=== PATIENT | female | born 1975 | race Caucasian/White ===

== ENCOUNTER 2022-08-26 15:48 | Outpatient (CLI) | payer OTHER, SELFPAY ==
--- OUTSIDE RECORDS SUMMARY | 2022-08-26 15:51 | XMS_ITS | Encounter Summary ---
:1975 Author Organization [facility] Address [address] [place] [address] Care Team Providers Name Role Phone Unavailable Primary Care Provider Unavailable Encounter Details Date Type Department Care Team Description 06/17/2021 Clinical Communication Department of Peg, Otorhinolaryngology in Savage Alcala M.D. [place], [place] [address] [facility] [address] [place] [phone] Social History Tobacco Use Types Packs/Day Years Used Date Smoking Tobacco: Never Assessed Alcohol Habits Answer Date Recorded How often do you have a drink containing alcohol? 2-4 times a month 08/08/2022 How many drinks containing alcohol do you have on a 5 or 6 08/08/2022 typical day when you are drinking? How often do you have six or more drinks on one Monthly 08/08/2022 occasion? Social Isolation Answer Date Recorded In a typical week, how many times do you Three times a week 08/08/2022 talk on the phone with family, friends, or neighbors? How often do you get together with friends Once a week 08/08/2022 or relatives? How often do you attend scientologist or shinto More than 4 time s per year 08/08/2022 services? Do you belong to any clubs or organizations Yes 08/08/2022 such as scientologist groups, unions, fraternal or athletic groups, or school groups? How often do you attend meetings of the More than 4 times pe r year 08/08/2022 clubs or organizations you belong to? Are you now , , , 08/08/2022 , never or living with a partner? Physical Activity Answer Date Recorded On average, how many days per week do you engage in moderate to 3 days 08/08/2022 strenuous exercise (like walking fast, running, jogging, dancing, swimming, biking, or other activities that cause a light or heavy sweat)? On average, how many minutes do you engage in exercise at th is 20 min 08/08/2022 level? Stress Answer Date Recorded Do you feel stress - tense, restless, nervous, or anxious, o r Very much 08/08/2022 unable to sleep at night because your mind is troubled all the time - these days? Financial Resource Strain Answer Date Recorded How hard is it for you to pay for the very basics like Not v vandana hard 08/08/2022 food, housing, medical care, and heating? Intimate Partner Violence Answer Date Recorded Within the last year, have you been afraid of your partner o r No 08/08/2022 ex-partner? Within the last year, have you been humiliated or emotionall y No 08/08/2022 abused in other ways by your partner or ex-partner? Within the last year, have you been kicked, hit, slapped, or No 08/08/2022 otherwise physically hurt by your partner or ex-partner? Within the last year, have you been raped or forced to have any No 08/08/2022 kind of sexual activity by your partner or ex-partner? Food Insecurity Answer Date Recorded Within the past 12 months, you worried that your food would Never true 08/08/2022 run out before you got money to buy more. Within the past 12 months, the food you bought just didn't N ever true 08/08/2022 last and you didn't have money to get more. Transportation Needs Answer Date Recorded In the past 12 months, has lack of transportation kept you f rom No 08/08/2022 medical appointments or from getting medications? In the past 12 months, has lack of transportation kept you f rom No 08/08/2022 meetings, work, or getting things needed for daily living? Housing Stability Answer Date Recorded In the last 12 months, was there a time when you were not ab le No 08/08/2022 to pay the mortgage or rent on time? In the last 12 months, how many places have you lived? 1 08/08/2022 In the last 12 months, was there a time when you did not hav e a No 08/08/[address] to sleep or slept in a penitentiary (including now)? 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
--- OUTSIDE RECORDS SUMMARY | 2022-08-26 15:51 | XMS_ITS | Encounter Summary ---
:1975 Author Organization [facility] Address [address] [place] [address] Care Team Providers Name Role Phone Unavailable Primary Care Provider Unavailable Reason for Visit Outpatient (Routine) - Closed Specialty Diagnoses / Procedures Referred By Contact Refer red To Contact Otorhinolaryngology Diagnoses Perforation Tympanic Membrane Bilateral Other Marginal Perforations Of Tympanic Membrane Right Ear Carmine Galeas Dutton Yamila Alcala M.D. [address] [place] [address] Referral ID Status Reason Start Date Expiration Date Visits Requ ested Visits Authorized [id number] Closed 04/03/2021 04/03/2022 1 1 Encounter Details Date Type Department Care Team Description 06/05/2021 Comprehensive Visit Department of Lele Ruvalcabaa tion Tympanic Membrane Right (Primary Dx); Otorhinolaryngology in Donny Bullard ctive Hearing Loss Unilateral Right Ear With Unrestricted Hearing On The Contralateral Side [place], [place] Sana [address] [facility] [address] [place] [address] [place] [phone] Social History Tobacco Use Types Packs/Day Years [...] or relatives? How often do you attend sabianism or protestant More than 4 time s per year 08/08/2022 services? Do you belong to any clubs or organizations Yes 08/08/2022 such as sabianism groups, unions, fraternal or athletic groups, or [...] place to sleep or slept in a senior living (including now)? 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 - 06/05/2021 10:45 AM CDT Images from the original note were not included. SUBJECTIVE Referral Source: Carmine Galeas MD for evaluation of right TM perforation CHIEF COMPLAINT / REASON FOR VISIT Mattie Woo is a 45 y.o. female who presents for evaluation of right TM perforation HISTORY OF PRESENT ILLNESS Ms. Woo is a very pleasant 45 y.o. who presents today for evaluation of right TM perforation. Sheindicates that as a child she did have difficulties with return current otologic infections but no surgery. She reports back in 2010 following scuba diving she had bilateral TM rupture and was told this would resolve. She does not recall a time between 2010 in 2020 at which she was told she still had a perforation. She reports that while at a water park in November 2020, she experienced some popping/discomfort in her right ear and that the ear was full/hearing diminished. She did not have any significant otorrhea. She subsequently was evaluated by Dr Galeas who noted she had a right TM perforation. He did obtain a CT scan. She was advised she should have surgery but recommended to come to [facility] for surgery. In regards to the right otalgia, this is intermittent and radiates from below the ear to down into her neck. She does have DANYELL and uses a CPAP since in March 2021. She is otherwise he althy. She does continued to feel aural fullness. With water exposures she has more recently been trying to plug her right ear. She notes there was 1 instance recently where she jumped into a [place] in following this had discomfort in Dr. Galeas prescribed drops. No other otologic concerns. Social History Tobacco Use Smoking status: Not on file ALLERGIES: Not on File CURRENT MEDICATIONS: No current outpatient medications on file. PAST MEDICAL HISTORY: No past medical history on file. SURGICAL HISTORY: No past surgical history on file. SOCIAL HISTORY: Social History Socioeconomic History ??? Marital status: Spouse name: Not on file ??? Number of children: Not on file ??? Years of education: Not on file ??? Highest education level: Not on file Occupational History ??? Not on file Tobacco Use ??? Smoking status: Not on file Substance and Sexual Activity ??? Alcohol use: Not on file ??? Drug use: Not on file ??? Sexual activity: Not on file Other Topics Concern ??? Not on file Social History Narrative ??? Not on file Social Determinants of Health Financial Resource Strain: ??? Difficulty of Paying Living Expenses: Food Insecurity: ??? Worried About Running Out of Food in the Last Year: ??? Ran Out of Food in the Last Year: Transportation Needs: ??? Lack of Transportation (Medical): ??? Lack of Transportation (Non-Medical): Physical Activity: ??? Days of Exercise per Week: ??? Minutes of Exercise per Session: Stress: ??? Feeling of Stress : Social Connections: ??? Frequency of Communication with Friends and Family: ??? Frequency of Social Gatherings with Friends and Family: ??? Attends [employer] Services: ??? Active Member of Clubs or Organizations: ??? Attends Club or Organization Meetings: ??? Marital Status: Intimate Partner Violence: ??? Fear of Current or Ex-Partner: ??? Emotionally Abused: ??? Physically Abused: ??? Sexually Abused: FAMILY HISTORY: No family history on file. REVIEW OF SYSTEMS 10 point review of systems reviewed with patient and noncontributory other than in HPI. OBJECTIVE PHYSICAL EXAM General: Well appearing in no acute distress. Head: Normocephalic, atraumatic. Eyes: Extraocular eye movements intact bilaterally. Ears: Bilateral external ears without masses or lesions. Bilateral ears examined under otomicroscopy. Right Ear: Externally normal in appearance. External auditory canal with debris removed using microalligators and suction. Tympanic membrane with posterior marginal perforation approximately 20% of TM. Left Ear: Externally normal in appearance. External auditory canal with cerumen removed using suction and micro alligators. Tympanic membrane intact. Respiratory: Unlabored respirations. Psych: Appropriate mood and affect. DIAGNOSTICS: Audiogram: ASSESSMENT / PLAN #1 Perforation Tympanic Membrane Right #2 Conductive Hearing Loss Unilateral Right Ear With Unrestricted Hearing On The Contralateral Side It was a pleasure to meet Ms. Woo today. Pictures were taken of her ears today. We reviewed she does have a right tympanic membrane perforation in a posterior marginal area approximating 20% of the drum. We discussed options of observation versus surgery. Given her young age, good health, and the appearance we did recommend proceeding with surgical intervention to provide a safer ear. We discussedthere is some potential that her hearing may improve and the sensation of fullness may improve. It is difficult to predict how the discomfort she experiences may respond as this can be secondary otalgia. We reviewed surgical technique with the initial transcanal with possibility of postauricular incision. We discussed postoperative care and restrictions. We reviewed risks of surgery which include butare not limited to facial nerve damage, dysgeusia, and hearing loss. We discussed the following surgery she may have some muffled hearing and drainage. At this time, she is interested in proceeding with surgery but would like to review her calendar as she has some upcoming trips. She will contact us to schedule. All questions answered to the best of our ability. Patient reports understanding and agreement with this treatment plan. This patient was also seen and evaluated by Savage Ruvalcaba MD. TT: 30 min documented in this encounter Plan of Treatment Not on filedocumented as of this encounter Visit Diagnoses Diagnosis Perforation Tympanic Membrane Right - Pr imary Conductive Hearing Loss Unilateral Right Ear With Unrestricted Hearing On The Contralateral Side documented in this encounter
--- OUTSIDE RECORDS SUMMARY | 2022-08-26 15:51 | XMS_ITS | Encounter Summary ---
:1975 Author Organization [facility] Address [address] [place] [address] Care Team Providers Name Role Phone Elsewhere, Pcp Primary Care Provider Unavailable Encounter Details Date Type Department Care Team Description 01/23/2022 Diagnostic Department of Savage Ruvalcaba M.D. [address] [place] [address] Loss Hearing Conductive (Primary Dx); Otorhinolaryngology in Jacy Perez Au.D., M.S. [address] [place] [phone] Perforation Tympanic Membrane Right [place], [place] [address] [place], [place] [phone] Social History Tobacco Use Types Packs/Day Years Used Date Smoking Tobacco: Never Smokeless Tobacco: Never Alcohol Use Standard Drinks/Week Comments Never 0 (1 standard drink = 0.6 oz pure alcoho l) Alcohol Habits Answer Date Recorded How often [...] or relatives? How often do you attend quaker or cheondoism More than 4 time s per year 08/08/2022 services? Do you belong to any clubs or organizations Yes 08/08/2022 such as quaker groups, unions, fraternal or athletic groups, or [...] to sleep or slept in a senior care (including now)? Education Answer Date Recorded What is the highest level of school you have Some college, n o degree 11/11/2021 completed or the highest degree you have received? 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 - 01/23/2022 3:52 PM CDT SUBJECTIVE CHIEF COMPLAINT / REASON FOR VISIT Check hearing status HISTORY OF PRESENT COMPLAINT Ms. Mattie Woo is a 46 year old patient that underwent right tympanoplasty and cholesteatoma removal 10/23/2021. She noticed improvement afterwards; however, became ill in November and experienced significant drainage from both ear canals, right greater than left. She denies: significant noise exposure, significant ototoxic medications exposure, familial hearing loss, ear infections, ear or head trauma, ear or head trauma, prior ear surgery, OBJECTIVE See Audiological Evaluation Form ASSESSMENT/PLAN ?? Right ear- mild conductive hearing loss with 100% open-set word recognition; deferred tympanometry due to recent surgery ?? Left ear-mild to moderate conductive hearing loss with 100% open-set word recognition; tympanometry demonstrated a carole-compliant middle ear system CARE PLAN Discussed. To ENT next. documented in this encounter Plan of Treatment Not on filedocumented as of this encounter Procedures Procedure Name Priority Date/Time Associated Diagnosis Comme nts AUDIOGRAM Routine 01/23/2022 12:00 AM CDT Perforation Tympa nilo Membrane Right documented in this encounter Results Audiogram (01/23/2022 12:00 AM CDT) Specimen (Source) Anatomical Location Collection Method / Collectio n Time Received Time / Laterality Volume 01/23/2022 Narrative This result has an attachment that is no t available. Savage Ruvalcaba M.D. AUDIOLOGY SERVICES ORDERABLE S Performing Organization Address City/State/ZIP Code Phon e Number [facility]OLOGY [facility] documented in this encounter Visit Diagnoses Diagnosis Loss Hearing Conductive - Primary Perforation Tympanic Membrane Right documented in this encounter Care Teams Wool Hat Finisher Relationship Specialty Start Date End Date Elsewhere, Pcp PCP - General Internal Medicine 10/23/21 documented as of this encounter
--- OUTSIDE RECORDS SUMMARY | 2022-08-26 15:51 | XMS_ITS | Encounter Summary ---
:1975 Author Organization [facility] Address [address] [place] [address] Care Team Providers Name Role Phone Elsewhere, Pcp Primary Care Provider Unavailable Encounter Details Date Type Department Care Team Description 08/12/2022 Ancillary Procedure Department of Otorhinolaryngology Social History Tobacco Use Types Packs/Day Years [...] or relatives? How often do you attend baptist or quaker More than 4 time s per year 08/08/2022 services? Do you belong to any clubs or organizations Yes 08/08/2022 such as baptist groups, unions, fraternal or athletic groups, or [...] place to sleep or slept in a intermediate (including now)? Education Answer Date Recorded What is the highest level of school you have Some college, n o degree 11/11/2021 completed or the highest degree you have received? 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 documented in this encounter Results EAR-Otorhinolaryngology Image Exam (08/12/2022 3:39 PM CDT) Specimen (Source) Anatomical Collection Method Collection Time Re ceived Time Location / / Volume Laterality 08/12/2022 3:51 PM CDT Narrative [facility] - 08/12/2022 3:39 PM CDT This order has been created and auto-finalized to support the import of images acquired without order. The clini liliane documentation to support these images can be found on the encounter chele t produced images. Provider Not In System IMG NON RAD IMAGING PROCEDUR ES Performing Organization Address City/State/ZIP Code Phon e Number [facility] NA documented in this encounter Visit Diagnoses Not on filedocumented in this encounter Care Teams Technical Marketing Engineer Relationship Specialty Start Date End Date Elsewhere, Pcp PCP - General Internal Medicine 10/23/21 documented as of this encounter
--- OUTSIDE RECORDS SUMMARY | 2022-08-26 15:51 | XMS_ITS | Encounter Summary ---
:1975 Author Organization [facility] Address [address] [place] [address] Care Team Providers Name Role Phone Elsewhere, Pcp Primary Care Provider Unavailable Reason for Referral Outpatient (Routine) - Closed Specialty Diagnoses / Procedures Referred By Contact Refer red To Contact Otorhinolaryngology Savage Ruvalcaba, Altagracia Driscoll M.D. 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 Cholesteatoma Right [place], [place] [address] [place] [address] [place] [phone] Social History Tobacco Use Types Packs/Day Years [...] or relatives? How often do you attend shinto or advent More than 4 time s per year 08/08/2022 services? Do you belong to any clubs or organizations Yes 08/08/2022 such as shinto groups, unions, fraternal or athletic groups, or [...] place to sleep or slept in a fdc (including now)? Education Answer Date Recorded What is the highest level of school you have Some college, n o degree 11/11/2021 completed or the highest degree you have received? 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 - 11/14/2021 8:15 AM CST SUBJECTIVE CHIEF COMPLAINT / REASON FOR VISIT Mattie Woo is a 46 y.o. female who presents for evaluation following surgery. HISTORY OF PRESENT ILLNESS Ms. Woo is approximately 3 weeks status post right tympanoplasty. She had had a prior surgery and developed epithelium along the medial aspect of her tympanic membrane. Postoperatively she has donewell. She had some drainage early on but minimally later. No significant pain. The following portions of the patient's history were reviewed and updated as appropriate: allergies,current medications, family history, medical history, social history, surgical history and problem list. OBJECTIVE PHYSICAL EXAM Physical Exam Ear canal was cleaned of a large amount of Gelfoam. The tympanic membrane is intact in good position. There was minimal granulation tissue and no purulence. Her incisions are healing well. ASSESSMENT / PLAN #1 Perforation Tympanic Membrane Right Satisfactory progress following right tympanoplasty and cholesteatoma removal. I have her continue using ear drops for 2 more days as well as water precautions. She can then resume normal activities including use of her CPAP. We will see her back in approximately 2-3 months with an audiogram. She willbe in touch in the interim if she has any concerns. 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 Savage Ruvalcaba M.D. AUDIOLOGY SERVICES ORDERABLE S Performing Organization Address City/State/ZIP Code Phon e Number AUDIOLOGY [facility] documented in this encounter Visit Diagnoses Diagnosis Perforation Tympanic Membrane Right - Pr imary Cholesteatoma Right documented in this encounter Care Teams Field Traffic Investigator Relationship Specialty Start Date End Date Elsewhere, Pcp PCP - General Internal Medicine 10/23/21 documented as of this encounter
--- OUTSIDE RECORDS SUMMARY | 2022-08-26 15:51 | XMS_ITS | Encounter Summary ---
:1975 Author Organization [facility] Address [address] [place] [address] Care Team Providers Name Role Phone Unavailable Primary Care Provider Unavailable Reason for Referral Outpatient (Routine) - Closed Specialty Diagnoses / Procedures Referred By Contact Refer red To Contact Otorhinolaryngology Diagnoses Perforation Tympanic Membrane Bilateral Other Marginal Perforations Of Tympanic Membrane Right Ear Carmine Galeas M.D. [address] [place] [address] Referral ID Status Reason Start Date Expiration Date Visits Requ ested Visits Authorized [id number] Closed 04/03/2021 04/03/2022 1 1 Encounter Details Date Type Department Care Team Description 04/03/2021 [facility] Gerald Galeas oration Tympanic Membrane Bilateral (Primary Dx); AND CLINICS Carmine Alcala M.D. Other Marginal Perforations Of Tympanic Membrane Right Ear [address] [facility] [address] [place] [address] [place], [place] [phone] Social History Tobacco Use Types Packs/Day Years [...] or relatives? How often do you attend congregation or catholic More than 4 time s per year 08/08/2022 services? Do you belong to any clubs or organizations Yes 08/08/2022 such as congregation groups, unions, fraternal or athletic groups, or [...] place to sleep or slept in a longterm (including now)? 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
--- OUTSIDE RECORDS SUMMARY | 2022-08-26 15:51 | XMS_ITS | Encounter Summary ---
:1975 Author Organization [facility] Address [address] [place] [id number] Care Team Providers Name Role Phone Elsewhere, Pcp Primary Care Provider Unavailable Reason for Referral Outpatient (Routine) - Closed Specialty Diagnoses / Procedures Referred By Contact Refer aaliyah To Contact Otorhinolaryngology Savage Ruvalcaba [place] M.D. [address] [place] [address] Referral ID Status Reason Start Date Expiration Date Visits Requ ested Visits Authorized [id number] Closed 01/23/2022 01/23/2023 1 1 Scheduling Instructions Recheck on right-pin hole perforation Left-fluid Reason for Visit Outpatient (Routine) - Closed Specialty Diagnoses / Procedures Referred By Contact Doris fischer To Contact Otorhinolaryngology Savage Ruvalcaba [place] M.D. [address] [place] [address] Referral ID Status Reason Start Date Expiration Date Visits Requ ested Visits Authorized [id number] Closed 11/14/2021 11/14/2022 1 1 Encounter Details Date Type Department Care Team Description 01/23/2022 Office Visit Department of Peg, Cholesteatoma Right Otorhinolaryngology in Savage Alcala M.D. (Primary Dx) [place], [place] [address] [facility] [address] [place] [phone] Social History Tobacco Use Types Packs/Day Years [...] or relatives? How often do you attend methodist or rastafari More than 4 time s per year 08/08/2022 services? Do you belong to any clubs or organizations Yes 08/08/2022 such as methodist groups, unions, fraternal or athletic groups, or [...] or slept in a longterm (including now)? Education Answer Date Recorded What is the highest level of school you have Some college, n o degree 11/11/2021 completed or the highest degree you have received? 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 - 01/23/2022 3:30 PM CDT Images from the original note were not included. SUBJECTIVE CHIEF COMPLAINT / REASON FOR VISIT Mattie Woo is a 46 y.o. female who presents for follow-up of right tympanic membrane perforationand cholesteatoma removal status post repair. HISTORY OF PRESENT ILLNESS Ms. Woo is a very pleasant 46 y.o. who presents to clinic for follow-up today. Patient underwent tympanoplasty and cholesteatoma removal on October 23, 2021. Patient states in November she experienced extreme pain bilaterally followed by relief and drainage from her bilateral ears. She was put on drops and oral antibiotics. She states her hearing in the right extra sounds improved. He notes some decline in her hearing on the left. Notes a crackling sensation on the left. Denies any facial weakness, numbness, vertigo. No other concerns today. ALLERGIES: Allergies Allergen Reactions ??? Oxycodone-Acetaminophen Other (see comments) and GI intolerance ??? Sulfa (Sulfonamide Antibiotics) Hives and Rash CURRENT MEDICATIONS: Current Outpatient Medications: ??? citalopram (CeleXA) 20 mg tablet, , Disp: , Rfl: ??? levothyroxine (SYNTHROID, LEVOTHROID) 75 mcg tablet, , Disp: , Rfl: ??? oxyCODONE (OXY-IR) 5 mg immediate release capsule, Take 1 capsule (5 mg total) by mouth every 4 (four) hours as needed for pain for up to 10 doses Indication: acute pain., Disp: 10 capsule, Rfl: 0 PAST MEDICAL HISTORY: No past medical history on file. SURGICAL HISTORY: Past Surgical History: Procedure Laterality Date ??? 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 TYMPANOPLASTY Right 10/23/2021 Procedure: TYMPANOPLASTY, transcanal.; Surgeon: Savage Ruvalcaba M.D.; Location: [facility] OR SOCIAL HISTORY: Social History Socioeconomic History ??? Marital status: Spouse name: Not on file ??? Number of children: Not on file ??? Years of education: Not on file ??? Highest education level: Some college, no degree Occupational History ??? Not on file Tobacco Use ??? Smoking status: Never Smoker ??? Smokeless tobacco: Never Used Substance and Sexual Activity ??? Alcohol use: Never ??? Drug use: Never ??? Sexual activity: Not on file Other Topics Concern ??? Not on file Social History Narrative ??? Not on file Social Determinants of Health Financial Resource Strain: Low Risk ??? Difficulty of Paying Living Expenses: Not hard at all Food Insecurity: No Food Insecurity ??? Worried About Running Out of Food in the Last Year: Never true ??? Ran Out of Food in the Last Year: Never true Transportation Needs: No Transportation Needs ??? Lack of Transportation (Medical): No ??? Lack of Transportation (Non-Medical): No Physical Activity: Inactive ??? Days of Exercise per Week: 0 days ??? Minutes of Exercise per Session: 0 min Stress: Stress Concern Present ??? Feeling of Stress : To some extent Social Connections: Moderately Isolated ??? Frequency of Communication with Friends and Family: Once a week ??? Frequency of Social Gatherings with Friends and Family: Once a week ??? Attends Judaism Services: More than 4 times per year ??? Active Member of Clubs or Organizations: No ??? Attends Club or Organization Meetings: Never ??? Marital Status: Intimate Partner Violence: Not At Risk ??? Fear of Current or Ex-Partner: No ??? Emotionally Abused: No ??? Physically Abused: No ??? Sexually Abused: No Housing Stability: Low Risk ??? Unable to Pay for Housing in the Last Year: No ??? Number of Places Lived in the Last Year: 1 ??? Unstable Housing in the Last Year: No FAMILY HISTORY: No family history on file. REVIEW OF SYSTEMS 7 point review of systems reviewed with patient and noncontributory other than in HPI. OBJECTIVE PHYSICAL EXAM General: Well appearing in no acute distress. Head: Normocephalic, atraumatic. Eyes: Extraocular eye movements intact bilaterally. Ears: Bilateral external ears without masses or lesions. Bilateral ears examined under otomicroscopy. Right Ear: Externally normal in appearance. External auditory canal patent and healthy. Tympanic membrane and graft intact. Pinpoint perforation in superior quadrant outside area of previous grafting.No retraction. Left Ear: Externally normal in appearance. External auditory canal patent and healthy. Tympanic membrane intact with fresh perforation. Early healing. Crust over perforation left intact. Nose: External nose without masses or lesions, appears midline. Oral Exam: Oral mucosa pink and moist. Neck: Soft, supple. Trachea midline. Respiratory: Unlabored respirations. Psych: Appropriate mood and affect. DIAGNOSTICS: ASSESSMENT / PLAN #1 Cholesteatoma Right It was a pleasure to see Ms. Woo today. Patient unfortunately had bilateral perforations since welast saw our permanent infection. The right is healing well. Does not appear the perforation was involved with the previously grafted area. There is a pinpoint perforation in the superior aspect. We expect this will heal well. Her audiogram demonstrates improved conductive hearing loss on that right. Her hearing is nearly normal in the side. The perforation on the left is healing. There is likely a middle ear effusion present leading to her conductive hearing loss on that side. We will plan on seeing her back in 6 months with repeat audiogram. Discussed indications to contact us sooner. All questions and concerns were addressed and answered. All questions answered to the best of my ability. Patient reports understanding and agreement with this treatment plan. This patient was also seen and evaluated by Dr. Ruvalcaba. TT: 20 min Associated attestation - Savage Ruvalcaba M.D. - 01/29/2022 6:08 PM CDT I saw and evaluated the patient, participating in the morales portions of the service. I reviewed the resident/fellow???s note. I agree with the resident/fellow???s findings and plan. documented in this encounter Plan of Treatment Scheduled Referrals Name Type Priority Associated Order Schedule Diagnoses Otorhinolaryngology office Outpatient Routine E xpected: visit (clinic) Referral 07/25/2022 (Approximate), Expires: 04/24/2023 documented as of this encounter Visit Diagnoses Diagnosis Cholesteatoma Right - Primary documented in this encounter Care Teams Wind Science And Planning Relationship Specialty Start Date End Date Elsewhere, Pcp PCP - General Internal Medicine 10/23/21 documented as of this encounter
--- OUTSIDE RECORDS SUMMARY | 2022-08-26 15:51 | XMS_ITS | Encounter Summary ---
:1975 Author Organization [facility] Address [address] [place] [address] Care Team Providers Name Role Phone Unavailable Primary Care Provider Unavailable Encounter Details Date Type Department Care Team Description 06/05/2021 Ancillary Procedure Department of Otorhinolaryngology Social History [...] or relatives? How often do you attend restoration or gnosticism More than 4 time s per year 08/08/2022 services? Do you belong to any clubs or organizations Yes 08/08/2022 such as restoration groups, unions, fraternal or athletic groups, or [...] place to sleep or slept in a correction (including now)? 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 documented in this encounter Results EAR-Otorhinolaryngology Image Exam (06/05/2021 11:37 AM CDT) Specimen (Source) Anatomical Collection Method Collection Time Re ceived Time Location / / Volume Laterality 06/05/2021 11:47 AM CDT Narrative [facility] - 06/05/2021 11:37 AM CDT This order has been created and [...]
--- OUTSIDE RECORDS SUMMARY | 2022-08-26 15:51 | XMS_ITS | Encounter Summary ---
:1975 Author Organization [facility] Address [address] [place] [address] Care Team Providers Name Role Phone Elsewhere, Pcp Primary Care Provider Unavailable Reason for Visit Auth/Cert Specialty Diagnoses / Procedures Referred By Contact Refer red To Contact Diagnoses Unspecified perforation of tympanic membrane, right ear Procedures [place] TYMPANOPLASTY WO RCNST TYMPANOPLASTY-transcanal Referral ID Status Reason Start Date Expiration Date Visits Requ ested Visits Authorized [id number] 1 1 Encounter Details Date Type Department Care Team Description 10/23/2021 Surgery RST ROMB RODOLFO OR Savage Ruvalcaba, TYMPANOPLASTY, [address] [facility] [place] [address] [address] [facility] [phone] [place] [id number] Social History Tobacco Use Types Packs/Day Years [...] or relatives? How often do you attend catholic or scientologist More than 4 time s per year 08/08/2022 services? Do you belong to any clubs or organizations Yes 08/08/2022 such as catholic groups, unions, fraternal or athletic groups, or [...] Date Recorded Female 10/14/2021 1:33 PM FINANCIAL RETIREMENT PLAN SPECIALIST documented as of this encounter Last Filed Vital Signs Vital Sign Reading Time Taken Comments Blood Pressure 122/86 10/23/2021 9:06 AM FINANCIAL RETIREMENT PLAN SPECIALIST Pulse 64 10/23/2021 9:06 AM FINANCIAL RETIREMENT PLAN SPECIALIST Temperature 36.7 ??C (98.1 ??F) 10/23/2021 9:06 AM FINANCIAL RETIREMENT PLAN SPECIALIST Respiratory Rate 14 10/23/2021 9:06 AM FINANCIAL RETIREMENT PLAN SPECIALIST Oxygen Saturation 100% 10/23/2021 9:06 AM FINANCIAL RETIREMENT PLAN SPECIALIST Inhaled Oxygen Concentration - - Weight 76.1 kg (167 lb 12.3 oz) 10/23/2021 9:06 AM FINANCIAL RETIREMENT PLAN SPECIALIST Height 161 cm (5' 3.39) 10/23/2021 9:06 AM FINANCIAL RETIREMENT PLAN SPECIALIST Body Mass Index 29.36 10/23/2021 9:06 AM FINANCIAL RETIREMENT PLAN SPECIALIST documented in this encounter Discharge Instructions AttachmentsThe following attachments cannot be sent through Care Everywhere. About Your IV Sedation (Greenlandic)documented in this encounter Medications at Time of Discharge Medication Sig Dispensed Refills Start Date End Date citalopram (CeleXA) 20 0 11/01/2018 mg tablet levothyroxine 0 09/12/2021 (SYNTHROID, LEVOTHROID) 75 mcg tablet oxyCODONE (OXY-IR) 5 mg Take 1 capsule (5 mg 10 capsule 0 immediate release total) by mouth every capsuleIndications: 4 (four) hours as Acute Pain needed for pain for up to 10 doses Indication: acute pain. ofloxacin (FLOXIN) 0.3 Administer 4 drops 5 mL 0 10/2310/28/2021 % otic solution into the right ear 2 (two) times a day for 5 days. Start taking 5 days before post op appointment documented as of this encounter OR Notes Op Note - Savage Ruvalcaba M.D. - 10/23/2021 2:16 PM CST Pre-op Diagnosis Perforation Tympanic Membrane Right Post-op Diagnosis Perforation Tympanic Membrane Right,Cholesteatoma Right A waiter/waitress first class actively participated and was necessary for one or more of the following: opening,exposure and visualization during the case, maintaining hemostasis, wound closure resulting in its safe and expeditious completion. Findings This case was substantially more difficult than usual because of significant effort and difficulty mobilizing and identifying anatomical structures due to altered surgical field secondary to previous surgery. Complications None Description of Procedure After adequate general intubation anesthesia, the patient was placed in the supine position with thehead turned to the left. EMG monitoring electrodes were placed in orbicularis oculi and jay. Lidocaine 1% and 1:100,000 epinephrine were injected in the postauricular region and external auditory canal. We harvested a tragal cartilage graft and a perichondrial graft. Some bleeding was controlled withbipolar cautery. Two 5-0 chromic sutures were placed. We then cleaned and inspected the ear canal. Did have moderate sized posterior superior perforation. There was an area of adhesion of epithelium tothe long process of the incus which I removed through the perforation. I then began freshening the margins of the perforation. It became evident there was epithelium on the medial surface of the tympanic membrane. We then elevated a tympanomeatal flap, entering the middle ear space. I did split the flap and rotate it superiorly and inferiorly. It was difficult to visualize in the hypotympanum due to the tortuosity of the external auditory canal. I then began removing some additional tympanic membrane, as I was unable to remove all of the epithelium from the medial surface. This extended up to the malleus and around the umbo and involved a portion of the anterior inferior tympanic membrane. I then began elevating the anulus and more inferiorly, and she had a dehiscent jugular bulb with some thin mobile bone over it. A small amount of venous bleeding in this area was controlled with a piece of Gelfoam. The jugular bulb was essentially in contact with the anulus. I then continued to remove the portion of the tympanic membrane and anulus that was involved in cholesteatoma. At this point, I felt I had removed all of the skin in the middle ear space, and we began reconstruction. Due to the size of the defect, we also harvested a temporalis fascia graft through a postauricular incision which was closed with interrupted 3-0 Vicryl and a running 5-0 fast chromic suture. I placed the fascia graft in a medial underlay fashion and then an additional piece of perichondrium and cartilage in the posterior superior quadrant with some of the perichondrium coming up the external auditory canal. The skin flaps were then repositioned. I had placed Gelfoam medially and placed additional Gelfoam laterally andcarefully checked all of the margins, and I thought we had excellent placement. Of note, the ossicular chain was intact. We then placed polyethylene glycol in the remainder of the ear. Mastoid dressingwas placed. The patient was allowed to wake up from anesthesia and was taken from the operating roomextubated in stable condition. dinorah Ruvalcaba M.D. NCIAL RETIREMENT PLAN SPECIALIST documented in this encounter Plan of Treatment Scheduled Referrals Name Type Priority Associated Order Schedule Diagnoses Otorhinolaryngology Post Op Outpatient Routine Expected: (clinic) Referral 11/13/2021 (Approximate), Expires: 01/21/2023 documented as of this encounter Procedures Procedure Name Priority Date/Time Associated Diagnosis Comme nts ADULT OXYGEN THERAPY Routine 10/23/2021 5:10 PM FINANCIAL RETIREMENT PLAN SPECIALIST EXCISION CARTILAGE 10/23/2021 1:17 PM FINANCIAL RETIREMENT PLAN SPECIALIST Perforation Tympanic GRAFT DONOR SITE EAR Membrane Ri ght Cholesteatoma Right 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 8:52 TYMPANOPLASTY 10/23/2021 1:17 PM FINANCIAL RETIREMENT PLAN SPECIALIST Perforati on Tympanic Membrane Right Cholesteatoma Right 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 8:52 documented in this encounter Visit Diagnoses Diagnosis Perforation Tympanic Membrane Right Cholesteatoma Right documented in this encounter Administered Medications Inactive Administered Medications - up to 3 most recent administrations Medication Order MAR Action Action Date Dose Rate Site acetaminophen injection 1,000 mg 1,000 mg, intravenous, at 400 mL/hr, Adm inister over 15 Minutes, Once as needed, other, If patient has not received in pr evious 6 hours, Starting on Thu10/23/21 at 2230, For 1 dose, PACU (only), Oral unle ss RASS less than -1 or nausea/vomiting. Do not use if given in last 6 hours, Restri ction Criteria (Pharmacy will review and approve if criteria met): Unable to take or tolerate medications administered via the enteral route or orally (not just NPO) acetaminophen tablet 1,000 mg (TYLENOL) 1,000 mg, oral, Once as needed, other, I f patient has not received in the previous 6 hours, Starting on Thu10/23/21 at 2230, For 1 dose, PACU (only), Oral unless RASS less than -1 or nausea/vomiting. Do not use if gi harry in last 6 hours gelatin sponge,absorb-porcine 12-7 mm Given 10/23/2021 4:[address] 2 each Right Ear sponge (GELFOAM) As needed, Starting on Thu10/23/21 at 1622, Intra-Op lactated ringers New Bag 10/23/2021 12:40 PM FINANCIAL RETIREMENT PLAN SPECIALIST 20 mL/hr 20 mL/hr 20 mL/hr, intravenous, Continuous, Starting on Thu10/23/21 at 1230, Pre-Op lidocaine-EPINEPHrine 1 %-1:100,000 Given 10/23/2021 2:37 PM FINANCIAL RETIREMENT PLAN SPECIALIST 1 mL Right Ear injection (XYLOCAINE W/EPI) As needed, Starting on Thu10/23/21 at 1403, Intra-Op Given 10/23/2021 2:03 PM FINANCIAL RETIREMENT PLAN SPECIALIST 4 mL Right Ear polyethylene glycols otic Given 10/23/2021 4:43 PM FINANCIAL RETIREMENT PLAN SPECIALIST 1 applica tion Right Ear cream As needed, Starting on Thu10/23/21 at 1643, Intra-Op scopolamine base 1 mg Medication Applied 10/23/2021 12:49 PM 1 patch Behind Left Ear over 3 days 1 patch FINANCIAL RETIREMENT PLAN SPECIALIST (TRANSDERM SCOP) 1 patch, transdermal, Administer over 72 Hours, Once as needed, nausea and vomiting, Starting on Thu10/23/21 at 1237, For 1 dose, Pre-Op, Contains 1.5 mg to deliver 1 mg/72 hours. sodium chloride 0.9 % injection 10 mL 10 mL, intravenous, As needed, line care , Starting on Thu10/23/21 at 1226, Pre-Op, Peripheral Intravenous Catheter and Rapid Infusion Cat heter, prior to blood sampling, post blood transfusion or post blood samplin g sodium chloride 0.9 % injection 3 mL 3 mL, intravenous, As needed, line care, Starting on Thu10/23/21 at 1226, Pre-Op, Prior to and following infusion and betw een multiple consecutive infusions: sodium chloride 0.9 % injection sodium chloride 0.9 % injection 3 mL 3 mL, intravenous, Every 12 hours schedu led, First dose on Thu10/23/21 at 2100, Pre-Op, Peripheral Intravenous Catheter and Rapid Infu rick Catheter, when no infusion to maintain patency documented in this encounter Active and Recently Administered Medications Times are shown in FINANCIAL RETIREMENT PLAN SPECIALIST. Scheduled Medication Order 10/21/2021 10/22/2021 10/23/2021 acetaminophen tablet 1,000 mg (TYLENOL) 1715 (Due) 1,000 mg, oral, Every 6 hours, First dos e on Thu10/23/21 at 1715, Orally or per feeding tube. ibuprofen tablet 600 mg (ADVIL,MOTRIN) 1800 (Due) 600 mg, oral, Every 6 hours scheduled, F irst dose on Thu10/23/21 at 1800, Take with food or milk if GI disturbances occur with use. sodium chloride 0.9 % injection 3 mL 3 mL, intravenous, Every 12 hours schedu led, First dose on Thu10/23/21 at 2100, Pre-Op, Peripheral Intravenous Catheter and Rapid Infusion Catheter, when no infusion to maintain patency Continuous Medication Order 10/21/2021 10/22/2021 10/23/2021 lactated ringers 1240 (New Bag - Provider: Jennifer Stephens R.N.) 20 mL/hr, intravenous, Continuous, Starting on Thu10/23/21 at 1 230, Pre-Op lactated ringers 1445 (Due) 20 mL/hr, intravenous, Continuous, Start ing on Thu10/23/21 at 1445, PACU & Post-Op PRN Medication Order 10/21/2021 10/22/2021 10/23/2021 acetaminophen injection 1,000 mg(Linked Group 1) 1,000 mg, intravenous, at 400 mL/hr, Adm inister over 15 Minutes, Once as needed, other, If patient has not received in previous 6 hours, Starting on Thu10/23/21 at 2230, For 1 dose, PACU (only), Oral u nless RASS less than -1 or nausea/vomiti ng. Do not use if given in last 6 hours, Restriction Criteria (Pharmacy will review and approve if criteria met): Unable to take or tolerate medications administe red via the enteral route or orally (not just NPO) acetaminophen tablet 1,000 mg (TYLENOL)(Linked Group 1) 1,000 mg, oral, Once as needed, other, I f patient has not received in the previous 6 hours, Starting on Thu10/23/21 at 2230, For 1 dose, PACU (only), Oral unless RASS less than -1 or nausea/vomiting. Do not use if given in last 6 hours dexAMETHasone injection 4 mg (DECADRON) 4 mg, intravenous, Once as needed, nause a, vomiting, Starting on Thu10/23/21 at 1711, For 1 dose, Give only if NOT given during the pre or intraoperative period. If ondansetron ordered, give dexamethasone with first dose of ondansetron. fentaNYL injection 25 mcg (SUBLIMAZE) 25 mcg, intravenous, Every 2 min PRN, mo derate pain or score 4-6 of 10, severe pain or score 7-10 of 10, Starting on Thu10/23/21 at 1709, PACU (only), Up to maximum total dose of 200 mcg gelatin sponge,absorb-porcine 12-7 mm sponge (GELFOAM) (CANCELED ) 1622 (Given - Provider: Savage Ruvalcaba M.D.) As needed, Starting on Thu10/23/21 at 1622, Intra-Op granisetron (PF) injection 1 mg (KYTRIL) 1 mg, intravenous, Once as needed, nause a, vomiting, Starting on Thu10/23/21 at 1709, For 1 dose, PACU (only), If patient does not respond to ondansetron or haloperidol. (order of antiemetic administra tion - ondansetron then haloperidol then granisetron) haloperidol lactate injection 1 mg (HALDOL) 1 mg, intravenous, Every 6 hours PRN, na usea, vomiting, Starting on Thu10/23/21 at 1709, For 48 hours, PACU (only), Total of 3 doses in 24 hour period. RASS must be -2 or higher to administer. If nause a and vomiting persists, move to granist raman. (order of antiemetic administration - ondansetron then haloperidol then granisetron) lidocaine-EPINEPHrine 1 %-1:100,000 injection (XYLOCAINE W/EPI) (CANCELED) 1403 (Given - Provider: Noble Thakkar M.D., M.S.)1437 (Given - Provider: Noble Thakkar M.D., M.S. - Comment: canal) As needed, Starting on Thu10/23/21 at 1403, Intra-Op naloxone injection 0.2 mg (NARCAN) 0.2 mg, intravenous, Once as needed, res piratory depression, Starting on Thu10/23/21 at 1711, For 1 dose, For respiratory rate less than 8 breaths/min. Do not exceed 0.4 mg total dose. Notify service if given. May repeat as directed by prescriber. ondansetron (PF) injection 4 mg (ZOFRAN) 4 mg, intravenous, Every 6 hours PRN, na usea, vomiting, (If patient has not received in the previous 6 hours), Starting on Thu10/23/21 at 1709, For 48 hours, PACU (only), Administer first. If nausea an d vomiting persists, proceed with halope ridol. (order of antiemetic administration - ondansetron then haloperidol then granisetron) ondansetron (PF) injection 4 mg (ZOFRAN) 4 mg, intravenous, Every 6 hours PRN, na usea, vomiting, Starting on Thu10/23/21 at 1711, For 48 hours, Reassess for nausea or vomiting after at least 10 minutes. If nausea or vomiting persists administ er next ordered antiemetic medications ( order for antiemetic medication administration ondansetron then droperidol then promethazine). oxyCODONE IR tablet 5 mg (ROXICODONE) 5 mg, oral, Every 4 hours PRN, severe pa in or score 7-10 of 10, or pain greater than comfort goal, Starting on Thu10/23/21 at 1711 polyethylene glycols otic cream (CANCELED) 1643 (Given - Provider: Savage Ruvalcaba M.D.) As needed, Starting on Thu10/23/21 at 1643, Intra-Op scopolamine base 1 mg over 3 days 1 patch (TRANSDERM SCOP) 1249 (Medication Applied - Provider: Jennifer Stephens R.N.)1809 (Due: Medication Removed - Provider: Discharge Provider, Automatic - Comment: Time automatically adjusted from order being discontinued) 1 patch, transdermal, Administer over 72 Hours, Once as needed, nausea and vomiting, Starting on Thu10/23/21 at 1237, For 1 dose, Pre-Op, Contains 1.5 mg to deliver 1 mg/72 hours. sodium chloride 0.9 % injection 10 mL 10 mL, intravenous, As needed, line care , Starting on Thu10/23/21 at 1226, Pre- Op, Peripheral Intravenous Catheter and Rapid Infusion Catheter, prior to blood sampling, post blood transfusion or post blood sampling sodium chloride 0.9 % injection 3 mL 3 mL, intravenous, As needed, line care, Starting on Thu10/23/21 at 1226, Pre- Op, Prior to and following infusion and between multiple consecutive infusions: sodium chloride 0.9 % injection Linked Groups Order Group 1: acetaminophen tablet 1,000 mg (TYLENOL)Jump to med 1,000 mg, oral, Once as needed, other, I f patient has not received in the previous 6 hours, Starting on Thu10/23/21 at 2230, For 1 dose, PACU (only)
Oral unless RASS less than -1 or nausea/vomiting. Do not use if given in last 6 hours
Or acetaminophen injection 1,000 mgJump to med 1,000 mg, intravenous, at 400 mL/hr, Adm inister over 15 Minutes, Once as needed, other, If patient has not received in previous 6 hours, Starting on Thu10/23/21 at 2230, For 1 dose, PACU (only)<br&g t;Oral unless RASS less than -1 or nause a/vomiting. Do not use if given in last 6 hours
Restriction Criteria (Pharmacy will review and approve if criteria met): Unable to take or tolerate medic ations administered via the enteral rout e or orally (not just NPO) documented in this encounter Care Teams Harbor Master Relationship Specialty Start Date End Date Elsewhere, Pcp PCP - General Internal Medicine 10/23/21 documented as of this encounter
--- OUTSIDE RECORDS SUMMARY | 2022-08-26 15:51 | XMS_ITS | Encounter Summary ---
:1975 Author Organization [facility] Address [address] [place] [address] Care Team Providers Name Role Phone Unavailable Primary Care Provider Unavailable Encounter Details Date Type Department Care Team Description 07/05/2021 Orders Only Department of Peg, Perforation Ty mpanic Membrane Right (Primary Dx); Otorhinolaryngology in Savage Alcala M.D. Preprocedural Lab Exam [place], [place] [address] [facility] [address] [place] [phone] Social History Tobacco Use Types Packs/Day Years [...] or relatives? How often do you attend buddhism or anglican More than 4 time s per year 08/08/2022 services? Do you belong to any clubs or organizations Yes 08/08/2022 such as buddhism groups, unions, fraternal or athletic groups, or [...] place to sleep or slept in a prison (including now)? Sex Assigned at Date Recorded Female 10/14/2021 1:33 PM COMMERCIAL LINES INSURANCE AGENT documented as of this encounter Plan of Treatment Not on filedocumented as of this encounter Results SARS Coronavirus-2 RNA, V Asymptomatic (10/21/2021 9:58 AM COMMERCIAL LINES INSURANCE AGENT) [facility] Method Time Signature SARS-CoV-2 Swab, 10/21/2021 [facility] Specimen Nasopharynx 9:08 PM COMMERCIAL LINES INSURANCE AGENT Source SARS CoV-2 Undetected Undetected 10/21/2021 MKTO RNA, TMA 9:08 PM COMMERCIAL LINES INSURANCE AGENT Comment: SARS-CoV-2 RNA absent. This result does not rule out COVID-19 in the patient, as the sensitivity of the test depends o n the timing of the specimen collection and the quality of the specim en. Result should be correlated with patient's history and clinical presentat ion. ----ADDITIONAL INFORMATION---- This molecular amplification test was pe rformed using the Aptima SARS-CoV-2 assay ([employer] on the Vestiages tem under emergency use authorization (EUA) by the U.S. Food and Drug Administ ration. Fact sheets for this EUA assay can be fo und at the following links: For Healthcare Providers: https://www.fd a.gov/media/167095/download For Patients: https://www.fda.gov/media/ 313952/download Specimen Anatomical Collection Method Collection Time Receive d Time (Source) Location / / Volume Laterality Varies 10/21/2021 9:58 AM 3:00 (Nasopharynx) COMMERCIAL LINES INSURANCE AGENT PM COMMERCIAL LINES INSURANCE AGENT Savage Ruvalcaba M.D. LAB MICROBIOLOGY - GENERAL O RDERABLES Performing Organization Address City/State/ZIP Code Phon e Number [facility]- [address] [place] [id number] [place] [address] [place] [address] [address] documented in this encounter Visit Diagnoses Diagnosis Perforation Tympanic Membrane Right - Pr imary Preprocedural Lab Exam documented in this encounter
--- OUTSIDE RECORDS SUMMARY | 2022-08-26 15:51 | XMS_ITS | Encounter Summary ---
:1975 Author Organization [facility] Address [address] [place] [address] Care Team Providers Name Role Phone Elsewhere, Pcp Primary Care Provider Unavailable Reason for Referral Outpatient (Routine) - Authorized Specialty Diagnoses / Procedures Referred By Contact Refer red To Contact Otorhinolaryngology Justine Ortiz M.D. [facility] [address] [place] [address] Referral ID Status Reason Start Date Expiration Date Visits V isits Requested Authorized [id number] Authorized 08/12/2022 08/11/2025 1 1 Scheduling Instructions 1 year return Reason for Visit Outpatient (Routine) - Closed Specialty Diagnoses / Procedures Referred By Contact Refer red To Contact Otorhinolaryngology Savage Ruvalcaba [place] M.D. [address] [place] [address] Referral ID Status Reason Start Date Expiration Date Visits Requ ested Visits Authorized [id number] Closed 01/23/2022 01/23/2023 1 1 Encounter Details Date Type Department Care Team Description 08/12/2022 Office Visit Department of Peg, Perforation Ty mpanic Membrane Right (Primary Dx); Otorhinolaryngology in Savage Alcala M.D. Loss Hearing Conductive; [place], [place] [address] [place] Cholesteatoma Right [address] [place] [phone] Social History Tobacco Use Types Packs/Day Years [...] or relatives? How often do you attend jehovah's witness or mosque More than 4 time s per year 08/08/2022 services? 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 - 08/12/2022 3:00 PM CDT Images from the original note were not included. SUBJECTIVE CHIEF COMPLAINT / REASON FOR VISIT Mattie Woo is a 46 y.o. female who presents for follow-up of bilateral tympanic membrane perforation and cholesteatoma removal status post repair. HISTORY OF PRESENT ILLNESS Ms. Woo is a very pleasant 46 y.o. who presents to clinic for follow-up today. As reminder Patient underwent tympanoplasty and cholesteatoma removal on October 23, 2021. She was last seen on 01/23/2022. As reminder that time she had bilateral perforations as result of acute perforation with drainage that she experienced in November. Since that time she is been doing fairly well. She feels overallas the status of her right here as improved she notes better hearing on this side. Does not note anyotorrhea in bilateral ears. Denies any otalgia. She has had some fullness and muffled hearing in theleft side since her last visit which is maybe slightly worse than her last visit. She denies any vertigo, dizziness, facial nerve weakness. She has no other complaints today. She is not using any hearing aids. ALLERGIES: Allergies Allergen Reactions Oxycodone-Acetaminophen Other (see comments) and GI intolerance Sulfa (Sulfonamide Antibiotics) Hives and Rash CURRENT MEDICATIONS: Current Outpatient Medications: citalopram (CeleXA) 20 mg tablet, , Disp: , Rfl: levothyroxine (SYNTHROID, LEVOTHROID) 75 mcg tablet, , Disp: , Rfl: oxyCODONE (OXY-IR) 5 mg immediate release capsule, Take 1 capsule (5 mg total) by mouth every 4 (four) hours as needed for pain for up to 10 doses Indication: acute pain., Disp: 10 capsule, Rfl: 0 PAST MEDICAL HISTORY: No past medical history on file. SURGICAL HISTORY: Past Surgical History: Procedure Laterality Date EXCISION CARTILAGE GRAFT DONOR SITE EAR Right 10/23/2021 Procedure: EXCISION CARTILAGE GRAFT DONOR SITE EAR; Surgeon: Savage Ruvalcaba M.D.; [facility] 10/23/2021 Procedure: TYMPANOPLASTY, transcanal.; Surgeon: Savage Ruvalcaba M.D.; Location: [facility] OR SOCIAL HISTORY: Social History Socioeconomic History Marital status: Spouse name: Not on file Number of children: Not on file Years of education: Not on file Highest education level: Some college, no degree Occupational History Not on file Tobacco Use Smoking status: Never Smokeless tobacco: Never Substance and Sexual Activity Alcohol use: Never Drug use: Never Sexual activity: Not on file Other Topics Concern Not on file Social History Narrative Not on file Social Determinants of Health Financial Resource Strain: Low Risk Difficulty of Paying Living Expenses: Not very hard Food Insecurity: No Food Insecurity Worried About Running Out of Food in the Last Year: Never true Ran Out of Food in the Last Year: Never true Transportation Needs: No Transportation Needs Lack of Transportation (Medical): No Lack of Transportation (Non-Medical): No Physical Activity: Insufficiently Active Days of Exercise per Week: 3 days Minutes of Exercise per Session: 20 min Stress: Stress Concern Present Feeling of Stress : Very much Social Connections: Socially Integrated Frequency of Communication with Friends and Family: Three times a week Frequency of Social Gatherings with Friends and Family: Once a week Attends Latter Day Services: More than 4 times per year Active Member of Clubs or Organizations: Yes Attends Club or Organization Meetings: More than 4 times per year Marital Status: Intimate Partner Violence: Not At Risk Fear of Current or Ex-Partner: No Emotionally Abused: No Physically Abused: No Sexually Abused: No Housing Stability: Low Risk Unable to Pay for Housing in the Last Year: No Number of Places Lived in the Last Year: 1 Unstable Housing in the Last Year: No [...] and healthy. Tympanic membrane and graft intact. There is some crusting obscuring a portion of the TM and she did not tolerate removal of this in clinic today. Pinpoint perforation in superior quadrant outside area of previousgrafting is still present. No retraction. Left Ear: Externally normal in appearance. External auditory canal patent and healthy. Tympanic membrane intact with closure of previous perforation. There is retraction of the posterior TM with mild incus erosion and early myringostapediopexy. Respiratory: Unlabored respirations. Psych: Appropriate mood and affect. DIAGNOSTICS: No new audiogram since previous visit. Left Ear: Right Ear: ASSESSMENT / PLAN #1 Cholesteatoma status post tympanoplasty #2 Bilateral tympanic membrane of the left-sided TM perforation and persistent perforation on the right #3 Retraction of TM with mild incus necrosis on the left. It was a pleasure to see Ms. Woo today. Overall she is done fairly well since her last visit. Shedid have spontaneous closure of the tympanic membrane perforation on the left side but does demonstrate some retraction of her posterior TM on today's exam. This shows some mild incus necrosis and early myringostapediopexy. We did discuss this finding with her today. We recommend continued observationas this area is very clean and would be unlikely to resolve with placement of a tympanostomy tube. Regarding her right ear she does have a small persistent perforation as well as some crusting overlying this area of perforation. We recommend continued observation of this. This may undergo spontaneous closure however this hole may be providing some ventilation that would prevent further retraction from eustachian tube dysfunction. We recommended follow-up exam in approximately 1 year or sooner if shedevelops worsening hearing or new signs of infection or drainage. She was in agreement with this plan. All additional questions were addressed. Plan: - FU in 1 year with audiogram Justine Ortiz MD Resident PGY4 Associated attestation - Savage Ruvalcaba M.D. - 08/15/2022 5:14 PM CDT documented in this encounter Plan of Treatment Scheduled Orders Name Type Priority Associated Diagnoses Order S chedule Audiology evaluation Audiology Routine Perforation Tympanic Expected: 08/12/2023 Membrane Right (Approximate) , Expires: 2023 Scheduled Referrals Name Type Priority Associated Order Schedule Diagnoses Otorhinolaryngology office Outpatient Routine E xpected: visit (clinic) Referral 08/12/2023 (Approximate), Expires: 11/12/2023 documented as of this encounter Visit Diagnoses Diagnosis Perforation Tympanic Membrane Right - Pr imary Loss Hearing Conductive Cholesteatoma Right documented in this encounter Care Teams Channeling Machine Operator Relationship Specialty Start Date End Date Elsewhere, Pcp PCP - General Internal Medicine 10/23/21 documented as of this encounter
--- OUTSIDE RECORDS SUMMARY | 2022-08-26 15:51 | XMS_ITS | Encounter Summary ---
:1975 Author Organization [facility] Address [address] [place] [address] Care Team Providers Name Role Phone Unavailable Primary Care Provider Unavailable Encounter Details Date Type Department Care Team Description 10/21/2021 Hospital Encounter Department of Yael Ruvalcaba dural Lab Exam Laboratory Medicine Mayank Bullard in [place], [facility] [address] [place], [place] [address] [facility] [address] [place], [place] [phone] (Work) [phone] Social History Tobacco Use Types Packs/Day Years [...] or relatives? How often do you attend jain or catholic More than 4 time s per year 08/08/2022 services? Do you belong to any clubs or organizations Yes 08/08/2022 such as jain groups, unions, fraternal or athletic groups, or [...] at Date Recorded Female 10/14/2021 1:33 PM CANCELING AND CUTTING CONTROL CLERK documented as of this encounter Medications at Time of Discharge [...] op appointment documented as of this encounter Plan of Treatment Not on filedocumented as of this encounter Procedures Procedure Name Priority Date/Time Associated Diagnosis Comme nts SARS CORONAVIRUS-2 Routine 10/21/2021 9:58 AM Preprocedural La b Exam Results for this RNA, V CANCELING AND CUTTING CONTROL CLERK procedure are i n the results section. documented in this encounter Results SARS Coronavirus-2 RNA, V Asymptomatic (10/21/2021 9:58 AM CANCELING AND CUTTING CONTROL CLERK) [facility] Method Time Signature SARS-CoV-2 Swab, 10/21/2021 MKTO Specimen Nasopharynx 9:08 PM CANCELING AND CUTTING CONTROL CLERK Source SARS CoV-2 Undetected Undetected 10/21/2021 MKTO RNA, TMA 9:08 PM CANCELING AND CUTTING CONTROL CLERK Comment: SARS-CoV-2 RNA absent. This result does not rule out COVID-19 in the patient, as the sensitivity of the test depends o n the timing of the specimen collection and the quality of the specim en. Result should be correlated with patient's history and clinical presentat ion. ----ADDITIONAL INFORMATION---- This molecular amplification test was pe rformed using the Aptima SARS-CoV-2 assay ([employer] on the Studyplacess tem under emergency use authorization (EUA) by the U.S. Food and Drug Administ ration. Fact sheets for this EUA assay can be fo und at the following links: For Healthcare Providers: https://www.fd a.gov/media/645122/download For Patients: https://www.fda.gov/media/ 533533/download Specimen Anatomical Collection Method Collection Time Receive d Time (Source) Location / / Volume Laterality Varies 10/21/2021 9:58 AM 3:00 (Nasopharynx) CANCELING AND CUTTING CONTROL CLERK PM CANCELING AND CUTTING CONTROL CLERK Savage Ruvalcaba M.D. LAB MICROBIOLOGY - GENERAL O RDERABLES Performing Organization Address City/State/[facility] Code Phon e Number [facility]- [address] [place] [address] [place] [address] [address] documented in this encounter Visit Diagnoses Diagnosis Preprocedural Lab Exam documented in this encounter Additional Health Concerns Infection Onset Date Last Indicated Resolved Time COVID19 Pending 10/21/2021 10/21/2021 10/21/2021 9:09 PM CANCELING AND CUTTING CONTROL CLERK documented as of this encounter
--- OUTSIDE RECORDS SUMMARY | 2022-08-26 15:51 | XMS_ITS | Encounter Summary ---
:1975 Author Organization [facility] Address [address] [place] [address] Care Team Providers Name Role Phone Elsewhere, Pcp Primary Care Provider Unavailable Reason for Referral Outpatient (Routine) - Closed Specialty Diagnoses / Procedures Referred By Contact Refer red To Contact Otorhinolaryngology Noble Thakkar M.D., Kraig Driscoll M.SAlexy [address] [place] [address] Referral ID Status Reason Start Date Expiration Date Visits Requ ested Visits Authorized [id number] Closed 10/23/2021 10/23/2022 1 1 OVEN TENDER Reason for Visit Auth/Cert Specialty Diagnoses / Procedures Referred By Contact Refer red To Contact Diagnoses Unspecified perforation of tympanic membrane, right ear Procedures CA TYMPANOPLASTY WO RCNST TYMPANOPLASTY-transcanal Referral ID Status Reason Start Date Expiration Date Visits Requ ested Visits Authorized [id number] 1 1 Encounter Details Date Type Department Care Team Description 10/23/2021 Hospital Encounter [facility] OR Savage Ruvalcaba, [address] [place] [address] [place] [address] [address] [place] [address] [place] [phone] (Wo rk) Social History Tobacco Use Types Packs/Day Years [...] or relatives? How often do you attend hindu or spiritism More than 4 time s per year 08/08/2022 services? Do you belong to any clubs or organizations Yes 08/08/2022 such as hindu groups, unions, fraternal or athletic groups, or [...] place to sleep or slept in a residential (including now)? Sex Assigned at Date Recorded Female 10/14/2021 1:33 PM PEEL OVEN TENDER documented as of this encounter Last Filed Vital Signs Vital Sign Reading Time Taken Comments Blood Pressure 130/79 10/23/2021 6:00 PM PEEL OVEN TENDER Pulse 84 10/23/2021 6:00 PM PEEL OVEN TENDER Temperature 37.1 ??C (98.8 ??F) 10/23/2021 6:00 PM PEEL OVEN TENDER Respiratory Rate 17 10/23/2021 5:40 PM PEEL OVEN TENDER Oxygen Saturation 99% 10/23/2021 6:00 PM PEEL OVEN TENDER Inhaled Oxygen Concentration - - Weight 76.1 kg (167 lb 12.3 oz) 10/23/2021 9:06 AM PEEL OVEN TENDER Height 161 cm (5' 3.39) 10/23/2021 9:06 AM PEEL OVEN TENDER Body Mass Index 29.36 10/23/2021 9:06 AM PEEL OVEN TENDER documented in this encounter Discharge Instructions AttachmentsThe following attachments cannot be sent through Care Everywhere. About Your IV Sedation (Danish)documented in this encounter Medications at Time of [...] Diagnosis Perforation Tympanic Membrane Right,Cholesteatoma Right A engineer first assistant actively participated and was necessary for one [...] roomextubated in stable condition. dinorah Ruvalcaba M.D. OVEN TENDER documented in this encounter Plan of Treatment Scheduled Referrals Name Type Priority Associated Order Schedule Diagnoses Otorhinolaryngology Post Op Outpatient Routine Expected: (clinic) Referral 11/13/2021 (Approximate), Expires: 01/21/2023 documented as of this encounter Procedures Procedure Name Priority Date/Time Associated Diagnosis Comme nts ADULT OXYGEN THERAPY Routine 10/23/2021 5:10 PM PEEL OVEN TENDER EXCISION CARTILAGE 10/23/2021 1:17 PM PEEL OVEN TENDER Perforation Tympanic GRAFT DONOR SITE EAR Membrane Ri ght Cholesteatoma Right Case Notes BEHAVIORAL ASSISTANT 8:52 TYMPANOPLASTY 10/23/2021 1:17 PM PEEL OVEN TENDER Perforati on Tympanic Membrane Right Cholesteatoma Right Case Notes BEHAVIORAL ASSISTANT 8:52 documented in this encounter Visit Diagnoses Not on filedocumented in this encounter Administered Medications Inactive Administered [...] if gi harry in last 6 hours lactated ringers New Bag 10/23/2021 12:40 PM PEEL OVEN TENDER 20 mL/hr 20 mL/hr 20 mL/hr, intravenous, Continuous, Starting on Thu10/23/21 at 1230, Pre-Op scopolamine base 1 mg Medication Applied 10/23/2021 12:49 PM 1 patch Behind Left Ear over 3 days 1 patch PEEL OVEN TENDER (TRANSDERM SCOP) 1 patch, transdermal, Administer over [...] Recently Administered Medications Times are shown in PEEL OVEN TENDER. Scheduled Medication Order 10/21/2021 10/22/2021 10/23/2021 acetaminophen [...] NPO) documented in this encounter Care Teams Cause Analyst Relationship Specialty Start Date End Date Elsewhere, Pcp PCP - General Internal Medicine 10/23/21 documented as of this encounter
--- OUTSIDE RECORDS SUMMARY | 2022-08-26 15:51 | XMS_ITS | Clinical Summary ---
:1975 Author Organization [facility] [place] [address] Care Team Providers Name Role Phone Anatoliy Patricio MD Primary Care Provider [facility] Unavailable Allergies Active Allergy Reactions Severity Noted Date Comments Oxycodone-Acetaminophen Vomiting 01/20/2009 Sulfa (Sulfonamide Antibiotics) Hives Medications Medication Sig Dispensed Refills Start Date End Date Status citalopram (CELEXA) 10 mg as half 0 2018 Active tablet citalopram (CELEXA) 20 mg tablet 0 019 Active levothyroxine (SYNTHROID) 75 mcg 0 021 Active tablet Active Problems Not on file Social History Tobacco Use Types Packs/Day Years Used Date Never Smoker Smokeless Tobacco: Never Used Alcohol Use Standard Drinks/Week Comments Yes 0 (1 standard drink = 0.6 oz pure alcoho l) 4-8 per month Alcohol Habits Answer Date Recorded How often do you have a drink containing alcohol? Not asked How many drinks containing alcohol do you have on a Not aske d typical day when you are drinking? How often do you have six or more drinks on one occasion? No t asked Comment: 4-8 per month 10/22/2021 Sex Assigned at Date Recorded Female 11/25/2021 8:54 AM LIFT ELECTRICIAN Obstetrics History Last Filed Vital Signs Vital Sign Reading Time Taken Comments Blood Pressure 120/79 01/20/2009 12:05 PM CDT Pulse 77 01/20/2009 12:05 PM CDT Temperature 36.7 ??C (98 ??F) 01/20/2009 12:05 PM CDT Respiratory Rate 18 09/14/2003 12:00 AM LIFT ELECTRICIAN Oxygen Saturation 99% 01/20/2009 12:05 PM CDT Inhaled Oxygen Concentration - - Weight 60.6 kg (133 lb 9.6 oz) 01/20/2009 12:05 PM CDT Height - - Body Mass Index - - Plan of Treatment Health Maintenance Due Date Last Done Comments Tdap 1988 Depression screening for age 12+ 1989 BMI (ht and wt on same day) for 1995 age 18+ Hepatitis C screening for age 1109/22/1995 18-79 Tetanus booster 1997 COVID-19 vaccine series (3 - 05/07/2021 03/12/2021, 021 Booster for Pfizer series) Pap test for age 21-65 08/06/2021 08/06/2018, 08/06/2018, 02/12/2015, Additional history exists Influenza for age 9-49 06/26/2022 Results Not on filefrom Last 3 Months Insurance Payer Benefit Plan / Subscriber ID Effective Dates Phone Addre ss Type Group MEDICA MEDICA CHOICE [id number] 2020-Present [address] [address] [place] [address] (Home) [place] [phone] [id number] (Work) Care Teams Manager Of International Relationship Specialty Start Date End Date Anatoliy Patricio MD PCP - General Family Practice 09/16/[address] [place] [id number] Charlie Garcia 09/16/[address] [place] [address]
--- OUTSIDE RECORDS SUMMARY | 2022-08-26 15:51 | XMS_ITS | Encounter Summary ---
:1975 Author Organization [facility] Address [address] [place] [address] Care Team Providers Name Role Phone Elsewhere, Pcp Primary Care Provider Unavailable Reason for Visit Auth/Cert Specialty Diagnoses / Procedures Referred By Contact Refer red To Contact Diagnoses Unspecified perforation of tympanic membrane, right ear Procedures CA TYMPANOPLASTY WO RCNST TYMPANOPLASTY-transcanal Referral ID Status Reason Start Date Expiration Date Visits Requ ested Visits Authorized [id number] 1 1 Encounter Details Date Type Department Care Team Description 10/23/2021 Anesthesia Event RST ROMB MAIN OR Antonia Ferrell M.D., Ph.D. [address] [place] [address] 1216 [address] [facility] Fawn Nielsen M.D. [address] [place] [address] [place] [address] Anesthesia Record Procedure Summary Procedure Name Responsible Anesthesia Start Anesthesia Stop Time Anesthesiologist Time TYMPANOPLASTY, Antonia Ferrell, 10/23/21 1332 1 1711 transcanal. (Right) Sana, Ph.D. Events Date Time Event Comment 10/23/2021 1332 An Start Machine/Equipmen t Checked Infection Precautions Foll owed Procedure/Site Verified NPO Sta tus Verified Supine Standard ASA Mon itors Applied 1343 An Induction 1346 An Intubation 1358 Turnover to Proceduralist 1416 Proc Start 1645 Proc Fin 1650 Turnover to ANE Staff 1659 Airway Removal Criteria Met 1659 Extubation/Airway Removed 1701 an stop data 1711 An End I completed my h andoff to the receiving staff during [facility] we 1. Identified the patient 2. Ident ified the responsible provider 3. Revi ewed the pertinent medical history 4. Discussed the surgical course 5. Review ed intra-op anesthesia management and i ssues during anesthesia 6. Set expectati ons for post-procedure period 7. Allowe d opportunity for questions and ac knowledgement of understanding. Name Total fentanyl injection 50 mcg/mL 50 mcg lidocaine 2% (mg) injection 80 mg propofol 10 mg/mL 130 mg propofol 10 mg/mL infusion 1,600 mg succinylcholine 20 mg/mL injection 80 mg ePHEDrine PF 5 mg/mL syringe injection 30 mg ondansetron 4 mg/2 mL injection 4 mg remifentaniL 20 mcg/mL in NaCl 0.9% 100 mL infusion (U LTIVA) 3.01 mg ceFAZolin 4 g dexamethasone 4 mg/mL injection 8 mg haloperidol 5 mg/mL injection 1 mg acetaminophen 1,000 mg/100 mL injection 1,000 mg Lactated Ringers Free Drip 750 mL Agents No agents on file. Blood No blood administrations on file. Lines, Drains, and Airways Type Details Placement Removal Wound 10/23/21; 1653; N; 10/23/21 165 by Kb, Incision; Ear; Right; Leonie M, R.N. mastoid dressing Peripheral IV Placement Date: 10/23/21; 10/23/21 1234 by 10/23 1743 by Placement Time: 1234; Lily Lua Lisa M, Catheter Size: 20 G; R.N. Orientation: Left; Location: Antecubital; Site Prep: Chlorhexidine (Preferred); Technique: Anatomical landmarks; Inserted by: ams; Removal Date: 10/23/21; Removal Time: 174; Removal Reason: Per protocol ETT Placement Date: 10/23/21; 10/23/21 1346 by Kreun , 10/23/21 1659 by Placement Time: 1346 Adriano Barber APRN, LASHAWN, Sujata Ferguson, (created via procedure DNAP MATHEUS HUNTER A documentation); Mask Ventilation: Easy mask; Type: Standard ETT; Single Lumen Tube Size: 7 mm; Cuffed: Yes; Blade Size: Friedman 2; Location: Oral; Grade View: Grade 2A; Insertion Attempts: 1; Placement Verification: Bilateral breath sounds, Positive ETCO2, Symmetrical chest wall movement; Removal Date: 10/23/21; Removal Time: 165 Peripheral IV Placement Date: 10/23/21; 10/23/21 1353 by Kreirina , 10/23/21 1803 by Placement Time: 135; Adriano Barber APRN, LASHAWN, Maximo mcgill, Vale Friedman, Catheter Size: 20 G; DNAP R.N. Orientation: Right; Location: Forearm; Removal Date: 10/23/21; Removal Time: 1802; Removal Reason: Per protocol documented in this encounter Social History Tobacco Use Types Packs/Day Years [...] or relatives? How often do you attend rastafari or scientology More than 4 time s per year 08/08/2022 services? Do you belong to any clubs or organizations Yes 08/08/2022 such as rastafari groups, unions, fraternal or athletic groups, or [...] place to sleep or slept in a long-term (including now)? Sex Assigned at Date Recorded Female 10/14/2021 1:33 PM DRESSED POULTRY GRADER documented as of this encounter OR Notes Anesthesia Postprocedure Evaluation - Sujata Perez APRN, BUS MATRON - 10/23/2021 5:11 PM CST Patient: Mattie Woo Procedure Summary Date: 10/23/21 Room / Location: [address] [facility] / [facility] in [place], [place] Anesthesia Start: 1332 Anesthesia Stop: 1711 Procedures: TYMPANOPLASTY, transcanal. (Right ) EXCISION CARTILAGE GRAFT DONOR SITE EAR (Right ) Diagnosis: Perforation Tympanic Membrane Right Cholesteatoma Right (Tympanoplasty.) Providers: Savage Ruvalcaba M.D. Responsible Provider: Antonia Ferrell M.D., Ph.D. Anesthesia Type: general ASA Status: 2 Anesthesia Type: general Last vitals Vitals Value Taken Time BP Temp 37.3 ??C 10/23/21 1710 Pulse Resp SpO2 Please reference Vitals flowsheet for most recent vital signs. Anesthesia Post Evaluation Patient Disposition: dismissal Cardiovascular status: hemodynamics (HR & BP) acceptable Respiratory status: patent airway with spontaneous effort Temperature: normothermic Oxygen requirements: room air Level of consciousness: awake Pain score: pain adequately controlled and/or at baseline Post Op nausea/vomiting: none Hydration status: euvolemic SED POULTRY GRADER Anesthesia Procedure Notes - Adriano Martin R.N. - 10/23/2021 2:11 PM DRESSED POULTRY GRADER Associated Order(s): Airway Airway Date/Time: 10/23/2021 1:46 PM Performed by: Adriano Martin R.N. Authorized by: Fawn Nielsen M.D. Care team members present 1. Fawn Nielsen M.D. 2. Adriano Martin R.N. 3. Josy Mejia APRN, CRNA, DNAP Patient location during procedure: OR / Procedure Area PROCEDURE DETAILS: Mask difficulty assessment: easy mask Final airway type: direct laryngoscopy, intubation Laryngeal Manipulation: no Final airway difficulty of direct laryngoscopy (DL): 0-easy Final best view of glottic structures - Cormack/Lehane Score: grade 2A ETT location: oral Adult blade type: Friedman 2 Adult tube size: 7 Adult ETT distance at teeth/gum: 22 Oral tube type: standard ETT Cuffed: yes Number of attempt to successful placement: 1 Airway confirmation: bilateral breath sounds, positive ETCO2 and bilateral chest rise Other previous techniques attempted: none PRE PROCEDURE DETAILS: Pre evaluation for airway management: procedure Urgency: elective Preop assessment of probable difficulty: no difficulty anticipated Preoxygenation: bag valve mask SEDATION / ANESTHESIA Anesthesia method: anesthesia POST PROCEDURE DETAILS: Procedure outcome: successful Airway event: no complications ATTESTATION STATEMENT SED POULTRY GRADER Anesthesia Preprocedure Evaluation - Fawn Nielsen M.D. - 10/23/2021 12:37 PM CST Preprocedure Anesthesia & H&P Assessment Procedure Summary Date/Time: 10/23/21 1145 Procedure: TYMPANOPLASTY, transcanal. (Right ) Pre-op diagnosis: Tympanoplasty. Location: [place] [address] / [facility] in [place], [place] Providers: Savage Ruvalcaba M.D. Pertinent components of the patient's history including current problem list, medical history, surgical history, family history, social history, medications and allergies were reviewed. Present illnessand pre-op diagnosis were confirmed. The planned surgery / procedure was verified with the patient /legal guardian. The patient's general health condition remains unchanged RELEVANT COMORBID CONDITIONS ANESTHESIA (+) Post Operative Nausea/Vomiting RESP (+) Obstructive Sleep Apnea Adult ENDO (+) Hypothyroidism OBJECTIVE PHYSICAL EXAMINATION Airway (HEENT) Mallampati: II TM Distance: >3 FB Neck ROM: Full Mouth Opening: >3 cm Cardiovascular Rhythm: Regular Rate: Normal Pulmonary Pulmonary Assessment: Clear and non labored General / Constitutional General State of Health:: calm and healthy appearing Neurological Neurologic Assessment:??alert Dental Dental Assessment: dentition intact ASSESSMENT / PLAN ANESTHESIA PLAN ASA: 2 Anesthesia Plan: general Patient seen and allergies reviewed, anesthesia plan and risks discussed directly with patient /legal guardian or through an physical medicine specialist. Risks/Benefits/Alternatives of Blood transfusion discussed with patient / legal guardian, including an opportunity to ask questions and/or decline some or all transfusion therapies. The patient / legalguardian consented to the use of all blood products, as deemed medically necessary Discussed risk of potential decreased hormonal contraceptive efficacy for up to one month after anesthesia due to medication interactions. Approval to Proceed: approved for anesthesia Accompanied by in preoperative area, describes PONV with prior anesthetics as well as GI upset with Percocet. Took levothyroxine and citalopram this morning. Scopolamine patch placed preoperatively, planning propofol and remifentanil for maintenance, haloperidol, dexamethasone, ondansetron for PONV prophylaxis. SED POULTRY GRADER documented in this encounter Plan of Treatment Not on filedocumented as of this encounter Procedures Procedure Name Priority Date/Time Associated Comments Diagnosis LDA ANE ENDOTRACHEAL Routine 10/23/2021 1:46 PM R esults for this AIRWAY DRESSED POULTRY GRADER procedure are i n the results section. documented in this encounter Results LDA ANE ENDOTRACHEAL AIRWAY (10/23/2021 1:46 PM DRESSED POULTRY GRADER) Narrative Adriano Martin R.N. - 10/23/2021 1:46 PM DRESSED POULTRY GRADER Adriano Martin R.N. ? 10/23/2021 ??2:11 PM Airway Date/Time: 10/23/2021 1:46 PM Performed by: Adriano Martin R.N. Authorized by: Fawn Nielsen M.D. Care team members present 1. Fawn Nielsen M.D. 2. Adriano Martin R.N. 3. Josy Mejia CARTRIDGE MAKER, BUS MATRON, DNAP Patient location during procedure: OR / Procedure Area PROCEDURE DETAILS: Mask difficulty assessment: easy mask Final airway type: direct laryngoscopy, intubation Laryngeal Manipulation: no ?? Final airway difficulty of direct laryng oscopy (DL): 0-easy Final best view of glottic structures - Cormack/Lehane Score: grade 2A ETT location: oral Adult blade type: Friedman 2 Adult tube size: 7 Adult ETT distance at teeth/gum: 22 Oral tube type: standard ETT Cuffed: yes Number of attempt to successful placemen t: 1 Airway confirmation: bilateral breath so unds, positive ETCO2 and bilateral chest rise Other previous techniques attempted: non e PRE PROCEDURE DETAILS: Pre evaluation for airway management: pr ocedure Urgency: elective Preop assessment of probable difficulty: no difficulty anticipated Preoxygenation: bag valve mask SEDATION / ANESTHESIA Anesthesia method: anesthesia POST PROCEDURE DETAILS: ? Procedure outcome: successful ?? Airway event: no complications ATTESTATION STATEMENT Fawn Pappas M.D. ANESTHESIA ORDERABLES documented in this encounter Visit Diagnoses Not on filedocumented in this encounter Administered Medications Inactive Administered Medications - up to 3 most recent administrations Medication Order MAR Action Action Date Dose Rate Site acetaminophen injection Given 10/23/2021 4:49 PM DRESSED POULTRY GRADER 1,000 mg intravenous, Administer over 15 Minutes, As needed, Starting on Thu10/23/21 at 1649, Anesthesia Intra-op ceFAZolin injection (ANCEF) Given 10/23/2021 4:47 PM DRESSED POULTRY GRADER 2 g intravenous, As needed, Starting on Thu10/23/21 at 1355, Anesthesia Intra-op Given 10/23/2021 1:55 PM DRESSED POULTRY GRADER 2 g dexAMETHasone injection (DECADRON) Given 10/23/2021 1:55 PM DRESSED POULTRY GRADER 8 mg intravenous, As needed, Starting on Thu10/23/21 at 1355, Anesthesia Intra-op ePHEDrine (PF) injection Given 10/23/2021 3:13 PM DRESSED POULTRY GRADER 5 mg intravenous, As needed, Starting on Thu10/23/21 at 1402, Anesthesia Intra-op Given 10/23/2021 3:01 PM DRESSED POULTRY GRADER 5 mg Given 10/23/2021 2:16 PM DRESSED POULTRY GRADER 10 mg fentaNYL injection (SUBLIMAZE) Given 10/23/2021 1:44 PM DRESSED POULTRY GRADER 50 mcg intravenous, As needed, Starting on Thu10/23/21 at 1344, Anesthesia Intra-op haloperidol lactate injection (HALDOL) Given 10/23/2021 2:28 PM DRESSED POULTRY GRADER 1 mg intravenous, As needed, Starting on Thu10/23/21 at 1428, Anesthesia Intra-op lactated ringers New Bag 10/23/2021 1:35 PM DRESSED POULTRY GRADER intravenous, Continuous Infusion: Per Instructions PRN, Starting on Thu10/23/21 at 1335, Anesthesia Intra-op lidocaine (PF) (cardiac) injection Given 10/23/2021 1:44 PM DRESSED POULTRY GRADER 80 mg intravenous, As needed, Starting on Thu10/23/21 at 1344, Anesthesia Intra-op ondansetron (PF) injection (ZOFRAN) Given 10/23/2021 4:47 PM DRESSED POULTRY GRADER 4 mg intravenous, As needed, Starting on Thu10/23/21 at 1647, Anesthesia Intra-op propofol 10 mg/mL infusion Rate/Dose 10/23/2021 3:09 100 mcg/kg/min 45.66 (DIPRIVAN) Change PM DRESSED POULTRY GRADER mL/hr intravenous, Continuous Infusion: Per Instructions PRN, Starting on Thu10/23/21 at 1343, Anesthesia Intra-op Rate/Dose Change 10/23/2021 2:10 PM DRESSED POULTRY GRADER 125 mcg/kg/min 57.075 mL/hr New Bag 10/23/2021 1:43 PM DRESSED POULTRY GRADER 150 mcg/kg/min 68.49 mL/hr propofoL injection (DIPRIVAN) Given 10/23/2021 1:45 PM DRESSED POULTRY GRADER 130 mg intravenous, As needed, Starting on Thu10/23/21 at 1345, Anesthesia Intra-op remifentaniL 20 mcg/mL in Rate/Dose 10/23/2021 2:10 0.2 mcg/kg/min 4 5.66 NaCl 0.9% 100 mL infusion Change PM DRESSED POULTRY GRADER mL/hr (ULTIVA) intravenous, Continuous Infusion: Per Instructions PRN, Starting on Thu10/23/21 at 1343, Anesthesia Intra-op New Bag 10/23/2021 1:43 PM DRESSED POULTRY GRADER 0.25 mcg/kg/min 57.075 mL/hr succinylcholine (PF) injection (ANECTINE ) Given 10/23/2021 1:45 PM DRESSED POULTRY GRADER 80 mg intravenous, As needed, Starting on Thu10/23/21 at 1345, Anesthesia Intra-op documented in this encounter Care Teams Oil And Gas Recruiter Relationship Specialty Start Date End Date Elsewhere, Pcp PCP - General Internal Medicine 10/23/21 documented as of this encounter
--- OUTSIDE RECORDS SUMMARY | 2022-08-26 15:51 | XMS_ITS | Clinical Summary ---
:1975 [address] [facility] Address [address] [place] [address] Care Team Providers Name Role Phone Elsewhere, Pcp Primary Care Provider Unavailable Source Comments Patient records contain information from all sites at [facility]. For routine questions regarding patient records, call [phone] during business hours, M-F 8:00 AM - 5:00 PM Central Time. Record requests for emergency care only can be directed to [phone] at any time.[facility] Allergies Active Allergy Reactions Severity Noted Date Comments Oxycodone-Acetaminophen Other (see comments), GI 01/20 intolerance Sulfa (Sulfonamide Hives, Rash 10/22/2021 Antibiotics) Medications Medication Sig Dispensed Refills Start Date End Date Status citalopram (CeleXA) 20 0 11/01/2018 Active mg tablet levothyroxine 0 09/12/2021 Activ e (SYNTHROID, LEVOTHROID) 75 mcg tablet oxyCODONE (OXY-IR) 5 mg Take 1 capsule 10 capsule 0 10/23/2021 Active immediate release (5 mg total) by capsuleIndications: mouth every 4 Acute Pain (four) hours as needed for pain for up to 10 doses Indication: acute pain. Active Problems Problem Noted Date Cholesteatoma Right 11/14/2021 Obstructive Sleep Apnea Adult 10/23/2021 Hypothyroidism 10/23/2021 Post Operative Nausea/Vomiting 10/23/2021 Encounters Date Type Specialty Care Team Description 08/12/2022 Ancillary Procedure 08/12/2022 Office Visit Otorhinolaryngology Maribel Ruvalcaba ion Tympanic Membrane Right (Primary Dx); Savage Alcala M.D. Loss Hearing C onductive; Cholesteatoma R ight from Last 3 Months Social History Tobacco Use Types Packs/Day Years [...] or relatives? How often do you attend jewish or christian More than 4 time s per year 08/08/2022 services? Do you belong to any clubs or organizations Yes 08/08/2022 such as jewish groups, unions, fraternal or athletic groups, or [...] or slept in a correction (including now)? Education Answer Date Recorded What is the highest level of school you have Some college, n o degree 11/11/2021 completed or the highest degree you have received? Sex Assigned at Date Recorded Female 10/14/2021 1:33 PM FABRIC INSPECTOR Last Filed Vital Signs Vital Sign Reading Time Taken Comments Blood Pressure 130/79 10/23/2021 6:00 PM FABRIC INSPECTOR Pulse 84 10/23/2021 6:00 PM FABRIC INSPECTOR Temperature 37.1 ??C (98.8 ??F) 10/23/2021 6:00 PM FABRIC INSPECTOR Respiratory Rate 17 10/23/2021 5:40 PM FABRIC INSPECTOR Oxygen Saturation 99% 10/23/2021 6:00 PM FABRIC INSPECTOR Inhaled Oxygen Concentration - - Weight 76.1 kg (167 lb 12.3 oz) 10/23/2021 9:06 AM FABRIC INSPECTOR Height 161 cm (5' 3.39) 10/23/2021 9:06 AM FABRIC INSPECTOR Body Mass Index 29.36 10/23/2021 9:06 AM FABRIC INSPECTOR Plan of Treatment Health Maintenance Due Date Last Done Comments Cervical Cancer Screening 1975 HIV Screening 1975 Hepatitis B Vaccines (1 of 1975 3 - 3-dose series) Hepatitis C Screening 1975 Lipid (Cholesterol) 1975 Screening Mammogram 1975 COVID-19 Vaccine (3 - 05/07/2021 03/12/2021, 02/19/2021 Booster for Pfizer series) Depression Screening 10/26/2021 (Annual PHQ-2) Influenza Vaccine (#1) 2022 09/06/2021, 08/13/2020, 07/28/2019, Additional history exists Thyroid Stimulating Hormone 10/29/2022 10/29/2021 (TSH) test for thyroid function DTaP,Tdap,and Td Vaccines 01/26/2027 01/26/2017, 01/21/2012 (3 - Td or Tdap) Pneumococcal vaccine (0-64 Aged Out No lo nger eligible years) based on patient 's age to complete this topic Procedures Procedure Name Priority Date/Time Associated Comments Diagnosis OTORHINOLARYNGOLOGY IMAGE Routine 08/12/2022 3:39 Results for this EXAM PM CDT procedure are i n the results section. from Last 3 Months Results EAR-Otorhinolaryngology Image Exam (08/12/2022 3:39 PM [...] Code Phon e Number IIMS IIMS NA from Last 3 Months Insurance Payer Benefit Plan / Subscriber ID Effective Dates Phone Addre ss Type Group MEDICA MEDICA [id number] 2020-Present [phone] [address] [address] [place] [address] [address] (Home) [place] [id number] Care Teams Jboss Developer Relationship Specialty Start Date End Date Elsewhere, Pcp PCP - General Internal Medicine 10/23/21
--- OUTSIDE RECORDS SUMMARY | 2022-08-26 15:52 | XMS_ITS | Encounter Summary ---
:1975 Author Organization [facility] Address [address] [place] [address] Care Team Providers Name Role Phone Unavailable Primary Care Provider Unavailable Reason for Visit Reason Onset Date Comments Outpatient COVID-19 Testing 08/25/2020 Encounter Details Date Type Department Care Team Description 08/25/2020 External Outreach Department of Family [facility], [facility] Medicine in [facility], Respirato ry ([place], [place] C.N.P., D.N.P. Dx) [address] [facility] [place] [address] [place], [place] [phone] Social History Tobacco Use Types Packs/Day Years [...] or relatives? How often do you attend holiness or muslim More than 4 time s per year 08/08/2022 services? Do you belong to any clubs or organizations Yes 08/08/2022 such as holiness groups, unions, fraternal or athletic groups, or [...] pay for the very basics like Not jayne vandana hard 08/08/2022 food, housing, medical care, [...] place to sleep or slept in a half-way (including now)? Sex Assigned at Date Recorded Female 10/14/2021 1:33 PM LIFE SCIENCES INSTRUCTOR documented as of this encounter Progress Notes Uyen Huffman R.N. - 08/25/2020 10:48 AM CDT Encounter created for the drive-through COVID-19 testing. documented in this encounter Miscellaneous Notes Addendum Note - Shoshana Davis M.S.N., Dorina, N.E.-B.C. - 08/25/2020 10:48 AM CDT Addended by: SHOSHANA DAVIS on: 08/28/2020 04:09 PM Modules accepted: Orders SCIENCES INSTRUCTOR documented in this encounter Plan of Treatment Not on filedocumented as of this encounter Visit Diagnoses Diagnosis Infection Upper Respiratory - Primary documented in this encounter Additional Health Concerns Infection Onset Date Last Indicated Resolved Time COVID19 Pending 08/25/2020 08/25/2020 08/28/2020 4:09 PM LIFE SCIENCES INSTRUCTOR documented as of this encounter
[2022-08-26 17:09] LABS: Albumin* 4.3 g/dL (3.3-5.0); Chloride* 102 mmol/L (96-114); Sodium* 137 mmol/L (135-149)
[2022-08-26 17:12] LABS: Alanine Aminotransferase* 31 U/L (4-35); Alkaline Phosphatase* 69 U/L (40-150); Aspartate Amino Transferase* 26 U/L (12-35); Bilirubin Total* 0.6 mg/dL (0.1-1.5); Blood Urea Nitrogen* 18 mg/dL (5-24); Carbon Dioxide* 28 mmol/L (20-32); Creatinine* 0.8 mg/dL (0.5-1.5); Estimated Glomerular Filt Rate 93 ml/min; Glucose* 91 mg/dL (60-115)
[2022-08-26 17:13] LABS: Calcium* 9.1 mg/dL (8.4-10.6)
== END 2022-08-26 15:49 | disposition home or self-care (01) ==
PROVIDERS: PCP Family Medicine; Visit Provider Internal Medicine
DX: Z01.419 Encounter for gynecological examination (general) (routine) without abnormal findings (principal); R53.83 Other fatigue; E03.9 Hypothyroidism, unspecified; F32.9 Major depressive disorder, single episode, unspecified
CPT/HCPCS: 80053; 84443

== ENCOUNTER 2022-12-23 11:17 | Outpatient (CLI) | payer BC, SELFPAY ==
--- NOTE | 2022-12-23 11:31 | CRLHL7_ITS ---
For Patients: As a result of the Century Cures Act, medical imaging exams and procedure reports are released immediately into your electronic medical record. You may view this report before your referring provider. If you have questions, please contact your health care provider. BILATERAL SCREENING MAMMOGRAM WITH COMPUTER-AIDED DETECTION AND TOMOSYNTHESIS TECHNIQUE: CC and MLO views were obtained. These mammographic images have been obtained using full-field digital technique. These mammographic images were interpreted with the benefit of computer-aided detection. Breast Tomosynthesis was used in this interpretation. COMPARISON FILM: 11/07/21, 10/12/20, 09/16/19. FINDINGS: There are scattered areas of fibroglandular density IMPRESSION: There is no radiographic evidence for malignancy. ASSESSMENT: BI-RADS Category 1: Negative RECOMMENDATION: Routine screening mammogram in 1 year. A lay language report of this examination will be provided to the patient. Fracisco Floyd M.D. Diagnostic/Nuclear Medicine Radiologist [email or web address] HARSHAD/Dictated by: Fracisco Floyd MD @ 12/24/2022 8:36:00 AM (Electronically Signed)
== END 2022-12-23 11:18 | disposition home or self-care (01) ==
LOC: NFLDRAD 11:20
PROVIDERS: PCP Family Medicine; Visit Provider Internal Medicine
DX: Z12.31 Encounter for screening mammogram for malignant neoplasm of breast (principal)
CPT/HCPCS: 77063; 77067